=== PATIENT | female | born 1975 | race Two or more races ===

== ENCOUNTER 2018-07-15 09:55 | Outpatient (CLI) | payer OTHER | END 2018-07-15 10:07 | disposition home or self-care (01) | LOC: SONOGRAMA 09:55 | DX: E04.8 Other specified nontoxic goiter (principal) ==

== ENCOUNTER 2019-05-15 10:50 | Outpatient (CLI) | payer OTHER | END 2019-05-15 14:04 | disposition home or self-care (01) | LOC: LAB 10:50 | DX: J20.0 Acute bronchitis due to Mycoplasma pneumoniae (principal); J11.1 Influenza due to unidentified influenza virus with other respiratory manifestations ==

== ENCOUNTER → 2023-02-06 08:34 | Outpatient (CLI) | payer OTHER ==
[2023-02-06 09:37] LABS: PH,URINE 5.5 (5.0-8.0); URINE APPEARANCE Clear; URINE BILIRRUBIN Negative (NEGATIVE); URINE BLOOD Moderate; URINE COLOR Dark Yellow; URINE GLUCOSE Negative (NEGATIVE); URINE LEUKOCYTE Trace; URINE NITRATE Positive; URINE PROTEIN Trace (NEGATIVE)
[2023-02-06 09:38] LABS: URINE EPITHELIAL CELLS 25.8 uL (0.0-38.8); URINE RBC 19.9 uL (0.0-20.8); URINE WBC 44.6 uL (0.0-23.2)
[2023-02-06 09:49] LABS: URINE BACTERIA > 9821.5 uL (0.0-1933)
== END | disposition home or self-care (01) ==
LOC: LAB 08:34
PROVIDERS: ATTEND Urology
DX: N39.0 Urinary tract infection, site not specified (principal)

== ENCOUNTER 2023-02-21 13:38 | Emergency (ER) | payer OTHER ==
[~2023-02-21] VITALS: Ht 165.1 cm; Wt 110.2 kg
[~2023-02-21 13:38] MED LIST: CLARINEX; FLUTICASONE; GLUMETZA500 MG; IPRAT-ALBUT 0.5-3 ML IH; LEVOFLOXACIN750 MG PO; LEVOTHYROXINE; LEVOTHYROXINE25 MCG; LEVSIN/SL0.125 MG SL; LIPITOR40 M1; METFORMIN HCL500 MG; MICARDIS40 MG; PEPCID AC20 MG PO; TUSNEL LIQUID178 ML PO; [UNRECOGNIZED DRUG - OTHER]
[2023-02-21] MEDS ORDERED: LEVOTHYROXINE25 MCG (16:18)
[2023-02-21] MEDS ORDERED: MICARDIS40 MG PO (16:19)
[2023-02-21] MEDS ORDERED: NEURONTIN600 M1 PO (16:19)
[2023-02-21] MEDS ORDERED: OZEMPIC0.25 MG/02 (16:20)
[2023-02-21 16:22] LABS: HEMATOCRIT 41.7 % (36.0-45.00); HEMOGLOBIN 14.3 g/dL (12.0-15.00); MEAN CELL VOLUME 90.2 fL (80.00-100.00); MEAN CORPUSCULAR HEMOGLOBIN 30.9 pg (27.00-32.0); MEAN CORPUSCULAR HGB CONC 34.3 g/dl (32.0-36.0); PLATELET COUNT 215 K/uL (150-450); RED BLOOD COUNT 4.63 M/uL (4.00-6.00); RED CELL DISTRIBUTION WIDTH 12.7 % (11.5-14.5)
[2023-02-21 16:24] LABS: PH,URINE 5.5 (5.0-8.0); URINE APPEARANCE Clear; URINE BILIRRUBIN Negative (NEGATIVE); URINE BLOOD Large; URINE COLOR Dark Yellow; URINE GLUCOSE Negative (NEGATIVE); URINE LEUKOCYTE Trace; URINE NITRATE Positive; URINE PROTEIN Trace (NEGATIVE)
[2023-02-21 16:27] LABS: URINE EPITHELIAL CELLS 53.4 uL (0.0-38.8); URINE RBC 54.8 uL (0.0-20.8); URINE WBC 34.3 uL (0.0-23.2)
[2023-02-21 16:30] LABS: URINE BACTERIA > 9821.5 uL (0.0-1933)
[2023-02-21 16:43] LABS: ALBUMIN 3.9 gm/dL (3.4-5.0); BILIRUBIN TOTAL 0.65 mg/dL (0.3-1.2); CALCIUM 9.4 mg/dL (8.5-10.1); CREATININE SERUM 0.87 mg/dL (0.55-1.02); GFR 69.49; GLOBULINA 4.1 G/DL (2.4-3.5); POTASSIUM 3.54 mEq/L (3.5-5.1)
== END 2023-02-21 21:20 | disposition home or self-care (01) ==
LOC: ER 13:39
PROVIDERS: Emergency Medicine
DX: N39.0 Urinary tract infection, site not specified (principal)